=== PATIENT | female | born 1955 | race Caucasian/White ===

== ENCOUNTER 2017-02-24 08:12 | Outpatient (CLI) | payer MEDICARE ==
--- NOTE | 2017-02-24 09:34 | Ultrasound Report ---
AORTA SCREEN: 02/24/2017 CLINICAL INDICATION: Hypertension. FINDINGS: The abdominal aorta is normal in caliber, measuring 2.5 cm proximally, 1.9 cm in the mid p ortion, and 1.8 cm distally. Iliacs are normal in caliber. No free fluid is present. IMPRESSION: NO EVIDENCE OF ABDOMINAL AORTIC ANEURYSM. JOB #: [id number] EXT JOB #:[id number]
== END 2017-02-24 08:13 | disposition home or self-care (01) ==
LOC: DI 08:12
PROVIDERS: ATTEND Internal Medicine
DX: I10 Essential (primary) hypertension (principal)
CPT/HCPCS: 76706

== ENCOUNTER 2017-09-19 10:15 | Outpatient (CLI) | payer MEDICARE | END 2017-09-19 10:16 | disposition home or self-care (01) | LOC: DI.N 10:15 | PROVIDERS: ATTEND Internal Medicine | DX: Z53.9 Procedure and treatment not carried out, unspecified reason (principal) ==

== ENCOUNTER 2017-10-18 14:12 | Outpatient (CLI) | payer MEDICARE ==
--- NOTE | 2017-10-18 19:50 | Ultrasound Report ---
LEFT BREAST ULTRASOUND: 10/18/2017 CLINICAL INDICATION: Palpable abnormalities left axilla. TECHNIQUE: Real-time scanning was performed with pharmacy services representative static images obtained. FINDINGS: Ultrasound of the two palpable regions identified by the patient was performed. At the more superior site, there is a 3 x 2 x 2 mm sebaceous cyst, accounting for the palpable abnormality. No sonographically suspicious findings are identified. At the more inferior site, unremarkable parenchymal lobules are seen. No discrete solid or cystic lesion is identified. No sonographically suspicious findings are seen. IMPRESSION: BENIGN FINDINGS. RECOMMENDATION: Routine annual screening unless otherwise clinically indicated. BIRADS CATEGORY - 2 BENIGN FINDINGS. TD: 10/18/2017 19:49
--- NOTE | 2017-10-18 19:52 | Mammography Report ---
DIAGNOSTIC BILATERAL MAMMOGRAM: 10/18/2017 CLINICAL INDICATION: Palpable abnormality left axilla. TECHNIQUE: Bilateral CC, MLO views, left true lateral and laterally exaggerated craniocaudal views. Markers were placed at the sites of palpable abnormalities identified by the patient in the left axilla. COMPARISON: 06/23/2016, 02/20/2014, 07/08/2011 FINDINGS: The breasts again demonstrate scattered fibroglandular densities bilaterally. Coarse, typically benign calcifications are present. At the more superior of the 2 palpable regions identified by the patient in the left axilla, there is a 4 mm circumscribed nodule. The more inferior site demonstrates no mammographic abnormality. Please also refer to left breast ultrasound of the same day. IMPRESSION: BENIGN FINDINGS. RECOMMENDATION: Routine annual screening unless otherwise clinically indicated. BIRADS CATEGORY - 2 BENIGN FINDINGS. STANDARD QUALIFYING STATEMENTS: 1. This examination was reviewed with the aid of Computer-Aided Detection (CAD). 2. A negative or benign imaging report should not delay biopsy if clinically suspicious findings are present. Consider surgical consultation if warranted. More than 5% of cancers are not identified by imaging. 3. Dense breasts may obscure an underlying neoplasm. TD: 10/18/2017 19:52
== END 2017-10-18 14:13 | disposition home or self-care (01) ==
LOC: DI 14:12
PROVIDERS: ATTEND Internal Medicine
DX: Z12.31 Encounter for screening mammogram for malignant neoplasm of breast (principal); N63.32 Unspecified lump in axillary tail of the left breast
CPT/HCPCS: 76642; 77066

== ENCOUNTER 2017-11-07 11:54 | Outpatient (CLI) | payer MEDICARE ==
--- NOTE | 2017-11-07 13:07 | XRAY Report ---
THREE VIEW CERVICAL SPINE: 11/07/2017 CLINICAL INDICATION: Pain. FINDINGS: AP, lateral, odontoid views of the cervical spine demonstrate normal height and alignment of the vertebral bodies. Minimal degenerative disk and facet disease is present. There is no evidence of fracture or subluxation. The prevertebral soft tissues are unremarkable. IMPRESSION: MINIMAL DEGENERATIVE CHANGES. NO EVIDENCE OF FRACTURE. TD: 11/07/2017 13:06
--- NOTE | 2017-11-07 13:08 | XRAY Report ---
TWO VIEW THORACIC SPINE: 11/07/2017 CLINICAL INDICATION: Pain. FINDINGS: Frontal and lateral views of the thoracic spine demonstrate mild degenerative disk disease. There is no evidence of acute fracture. No paraspinal hematoma is seen. IMPRESSION: MILD DEGENERATIVE DISK DISEASE. TD: 11/07/2017 13:07
--- NOTE | 2017-11-07 13:10 | XRAY Report ---
TWO VIEW CHEST: 11/07/2017 CLINICAL INDICATION: Chest pain. FINDINGS: Frontal and lateral views of the chest are compared to previous films of 03/09/2011. The cardiac silhouette is within normal limits. The lungs are clear. No effusion or pneumothorax is present. IMPRESSION: NORMAL CHEST. TD: 11/07/2017 13:09
== END 2017-11-07 11:55 | disposition home or self-care (01) ==
LOC: DI 11:54
PROVIDERS: ATTEND Internal Medicine
DX: M50.30 Other cervical disc degeneration, unspecified cervical region (principal); M53.82 Other specified dorsopathies, cervical region; M51.34 Other intervertebral disc degeneration, thoracic region
CPT/HCPCS: 71046; 72040; 72070

== ENCOUNTER 2019-01-25 | Day surgery (SDC) | payer MEDICARE | END 2019-01-25 05:56 | disposition home or self-care (01) | PROC: 0DJD8ZZ Inspection of Lower Intestinal Tract, Via Natural or Artificial Opening Endoscopic (ICD-10-PCS; principal; 2019-01-25) | DX: Z12.11 Encounter for screening for malignant neoplasm of colon (principal); K64.8 Other hemorrhoids; I10 Essential (primary) hypertension; R73.03 Prediabetes; E78.00 Pure hypercholesterolemia, unspecified; A60.1 Herpesviral infection of perianal skin and rectum; F41.0 Panic disorder [episodic paroxysmal anxiety]; F32.9 Major depressive disorder, single episode, unspecified; F43.10 Post-traumatic stress disorder, unspecified; C44.91 Basal cell carcinoma of skin, unspecified; Z87.891 Personal history of nicotine dependence; Z80.0 Family history of malignant neoplasm of digestive organs | CPT/HCPCS: 45378; J3010; J7120 ==

== ENCOUNTER 2020-02-08 09:42 | Outpatient (CLI) | payer MEDICARE ==
--- NOTE | 2020-02-11 11:41 | Mammography Report ---
BILATERAL DIGITAL SCREENING MAMMOGRAM 3D/2D: 02/08/2020 CLINICAL: Routine screening. Comparison is made to exams dated: 10/18/2017 ultrasound, 10/18/2017 mammogram, 06/23/2016 mammogram, and 02/20/2014 mammogram - [facility]. There are scattered fibroglandular elements in both breasts. No significant masses, calcifications, or other findings are seen in either breast. There has been no significant interval change. IMPRESSION: NEGATIVE There is no mammographic evidence of malignancy. A 1 year screening mammogram is recommended. This exam was interpreted at Station ID: [id number]. NOTE: For mammograms, a report in lay terms will be sent to the patient. Approximately 15% of breast malignancies will not be visualized mammographically. In the management of a palpable breast mass, a negative mammogram must not discourage biopsy of a clinically suspicious lesion. Electronically Signed By: De Marion M.D. [email or web address]/[email or web address]:02/08/2020 11:01:26 ACR BI-RADS Category 1: Negative 3341F PARENCHYMAL PATTERN: (A) - The breast(s) demonstrate(s) scattered fibroglandular densities. BI-RADS CATEGORY: (1) - 1 RECOMMENDATION: (ANNUAL) - Recommend routine annual screening mammography. [id number] 1 year screening LATERALITY: (B)
== END 2020-02-08 09:43 | disposition home or self-care (01) ==
LOC: DI 09:42
PROVIDERS: ATTEND Internal Medicine
DX: Z12.31 Encounter for screening mammogram for malignant neoplasm of breast (principal)
CPT/HCPCS: 77063; 77067

== ENCOUNTER 2020-02-08 09:43 | Outpatient (CLI) | payer MEDICARE ==
--- NOTE | 2020-02-09 06:26 | DEXA Report ---
PROCEDURE: Dexa Spine and/or Hip INDICATIONS: DISORDER OF BONE TECHNIQUE: Dual energy x-ray absorptiometry (DXA) was performed on a [employer] System. Regions measur ed are the AP Spine, femoral neck, and if needed forearm. COMPARISON: None. FINDINGS: Lumbar Spine: Bone Mineral Density 1.081 g/cm/cm,T score -0.8, normal Left Hip: Bone Mineral Density 0.847 g/cm/cm,T score -1.3, osteopenia Left Femoral Neck: Bone Mineral Density 0.837 g/cm/cm, T score -1.4, osteopenia (T score greater or equal to -1.0: NORMAL) (T score from -1.1 to -2.4: OSTEOPENIA) (T score less than or equal to -2.5 to: OSTEOPOROSIS) Impression: Mild osteopenia within the left hip and femoral neck. Patients with diagnosis of osteoporosis or osteopenia should have regular bone mineral density assess ment. For those eligible for Medicare, routine testing is allowed once every 2 years. Testing frequ ency can be increased for patients who have rapidly progressing disease or for those who are receivin g medical therapy to restore bone mass. Reviewed by: Jacquelin Briggs MD on 02/08/2020 3:53 PM PDT Approved by: Jacquelin Briggs MD on 02/08/2020 3:53 PM PDT Station ID: [id number]
== END 2020-02-08 09:44 | disposition home or self-care (01) ==
LOC: DI 09:43
PROVIDERS: ATTEND Internal Medicine
DX: M85.89 Other specified disorders of bone density and structure, multiple sites (principal)
CPT/HCPCS: 77080

== ENCOUNTER 2022-06-08 13:33 | Outpatient (CLI) | payer MEDICARE ==
--- NOTE | 2022-06-09 11:55 | Mammography Report ---
BILATERAL DIGITAL SCREENING MAMMOGRAM 3D/2D: 06/08/2022 CLINICAL: Routine screening. Comparison is made to exams dated: 02/08/2020 mammogram, 10/18/2017 ultrasound, 10/18/2017 mammogram, 1 08/24/2015 mammogram, 02/20/2014 mammogram, and 07/08/2011 mammogram - [facility]. There are scattered areas of fibroglandular density in both breasts (category b / 25%-50% glandular t issue). No significant masses, calcifications, or other findings are seen in either breast. There has been no significant interval change. IMPRESSION: NEGATIVE There is no mammographic evidence of malignancy. A 1 year screening mammogram is recommended. Based on the Tyrer Cuzick model (a risk assessment model) the patients lifetime risk is 8.0% and her 10 year risk is 3.9%. According to the ACR, ACS, and NCCN guidelines, an annual breast MRI exam monet g with mammogram is recommended if the patients lifetime risk is 20% or greater. This exam was interpreted at Station ID: [id number]. NOTE: For mammograms, a report in lay terms will be sent to the patient. Approximately 15% of breast malignancies will not be visualized mammographically. In the management of a palpable breast mass, a negative mammogram must not discourage biopsy of a clinically suspicious lesion. Electronically Signed By: Gabriel Moser M.D. [email or web address]:06/08/2022 19:37:33 ACR BI-RADS Category 1: Negative 3341F PARENCHYMAL PATTERN: (A) - The breast(s) demonstrate(s) scattered fibroglandular densities. BI-RADS CATEGORY: (1) - 1 RECOMMENDATION: (ANNUAL) - Recommend routine annual screening mammography. [id number] 1 year screening LATERALITY: (B)
== END 2022-06-08 13:34 | disposition home or self-care (01) ==
LOC: DI.N 13:33
DX: Z12.31 Encounter for screening mammogram for malignant neoplasm of breast (principal)